=== PATIENT | female | born 1955 | race Caucasian/White ===

== ENCOUNTER → 2017-04-07 | Outpatient (CLI) | payer BC ==
--- NOTE | 2017-04-09 10:18 | MM ---
Reason for exam: screening (asymptomatic). Last mammogram was performed 1 year ago. History: Patient is postmenopausal. Family history of breast cancer in cousin at age 45 and breast cancer in mother at age 83. Benign cyst aspiration of the right breast, June 29, 2002. Excisional biopsy of the right breast. Physical Findings: A clinical breast exam by your physician is recommended on an annual basis and results should be correlated with mammographic findings. MG 3D Screening Mammo W/Cad Bilateral CC and MLO view(s) were taken. Prior study comparison: April 01, 2016, bilateral MG screening mammo w CAD. February 14, 2015, bilateral MG screening mammo w CAD. The breast tissue is heterogeneously dense. This may lower the sensitivity of mammography. There is chronic nodularity in the right breast superiorly. No significant changes when compared with prior studies. ASSESSMENT: Negative, BI-RAD 1 RECOMMENDATION: Routine screening mammogram of both breasts in 1 year.
== END | disposition home or self-care (01) ==
LOC: RADMAMWWP 07:45
PROVIDERS: ATTEND Internal Medicine Geriatric Medicine
DX: Z12.31 Encounter for screening mammogram for malignant neoplasm of breast (principal)
CPT/HCPCS: 77063; G0202

== ENCOUNTER → 2017-06-30 | Outpatient (CLI) | payer BC ==
--- NOTE | 2017-06-30 08:49 | BD ---
EXAMINATION TYPE: MG DEXA axial skeleton. DATE OF EXAM: 06/30/2017 CLINICAL HISTORY: Height: 67 Weight: 157 FRAX RISK QUESTIONS: Alcohol (3 or more units per day): no Family History (Parent hip fracture): no Glucocorticoids (More than 3mos): no (Ex: prednisone, prednisolone, methylprednisolone, dexamethasone, and hydrocortisone). History of Fracture in Adulthood: no Secondary Osteoporosis: 1. Type 1 Diabetes: no 2. Hyperthyroidism: no 3. Menopause before 45: hysterectomy age 49 4. Malnutrition: no 5. Chronic liver disease: no Rheumatoid Arthritis: no Current Tobacco Use: no RISK FACTORS HISTORY OF: Family History of Osteoporosis: unsure Active: yes Diet low in dairy products/other sources of calcium: no Postmenopausal woman: yes Take estrogen and/or progesterone medications: no Lost more than 2 inches in height since high school: no Frequent falls: no Poor Health: no Hyperparathyroidism: no Adrenal Insufficiency: no MEDICATIONS: Prednisone or other steroids: no Thyroid Medications:no Osteoporosis Medications: no Additional Medications: calcium & Vitamin D EXAM MEASUREMENTS: Bone mineral densitometry was performed using the [employer]era System. Bone mineral density as measured about the Lumbar spine is: ----- L1-L4(G/cm2): 1.297 T Score Values are as follows: ----- L2: 1.3 ----- L3: 1.7 ----- L4: 1.4 ----- L1-L4: 1.0 Bone mineral density has: Decreased -1.9% since study of: 01/06/2013 Bone mineral density about the R hip (g/cm2): 0.802 Bone mineral density about the L hip (g/cm2): 0.788 T Score values are as follows: -----R Neck: -1.7 -----L Neck: -1.8 -----R Total: -1.3 -----L Total: -1.5 Bone mineral density has: Decreased -5.0% since study of: 01/06/2013 IMPRESSION: Osteopenia (T Score between -2.5 and -1 as noted by T score values There is slightly increased risk of fracture and the patient may be considered for treatment. Re-Screen 2-5 years. NOTE: T-SCORE=SD OF THE YOUNG ADULT MEAN.
== END | disposition home or self-care (01) ==
LOC: RADBDWWP 08:09
PROVIDERS: ATTEND Internal Medicine Geriatric Medicine
DX: M85.88 Other specified disorders of bone density and structure, other site (principal)
CPT/HCPCS: 77080

== ENCOUNTER → 2018-04-08 | Outpatient (CLI) | payer BC ==
--- NOTE | 2018-04-09 10:19 | MM ---
Reason for exam: screening (asymptomatic). Last mammogram was performed 1 year ago. History: Patient is postmenopausal. Family history of breast cancer in cousin at age 45 and breast cancer in mother at age 83. Benign cyst aspiration of the right breast, June 29, 2002. Excisional biopsy of the right breast. Physical Findings: A clinical breast exam by your physician is recommended on an annual basis and results should be correlated with mammographic findings. MG 3D Screening Mammo W/Cad Bilateral CC and MLO view(s) were taken. Prior study comparison: April 07, 2017, bilateral MG 3d screening mammo w/cad. April 01, 2016, bilateral MG screening mammo w CAD. The breast tissue is heterogeneously dense. This may lower the sensitivity of mammography. There are benign appearing round calcifications in the right breast. Asymmetric breast tissue in the right upper asspect, stable. There is no discrete abnormality. ASSESSMENT: Benign, BI-RAD 2 RECOMMENDATION: Routine screening mammogram of both breasts in 1 year.
== END | disposition home or self-care (01) ==
LOC: RADMAMWWP 07:28
PROVIDERS: ATTEND Internal Medicine Geriatric Medicine
DX: Z12.31 Encounter for screening mammogram for malignant neoplasm of breast (principal)
CPT/HCPCS: 77063; 77067

== ENCOUNTER → 2019-04-16 | Outpatient (CLI) | payer BC ==
--- NOTE | 2019-04-20 09:57 | MM ---
Reason for exam: screening (asymptomatic). Last mammogram was performed 1 year ago. History: Patient is postmenopausal. Family history of breast cancer in cousin at age 45 and breast cancer in mother at age 83. Benign cyst aspiration of the right breast, June 29, 2002. Excisional biopsy of the right breast. Physical Findings: A clinical breast exam by your physician is recommended on an annual basis and results should be correlated with mammographic findings. MG 3D Screening Mammo W/Cad Bilateral CC and MLO view(s) were taken. Prior study comparison: April 08, 2018, bilateral MG 3d screening mammo w/cad. April 07, 2017, bilateral MG 3d screening mammo w/cad. The breast tissue is heterogeneously dense. This may lower the sensitivity of mammography. Anterior asymmetric density right MLO view does not persist on 3D images. No significant changes when compared with prior studies. ASSESSMENT: Negative, BI-RAD 1 RECOMMENDATION: Routine screening mammogram of both breasts in 1 year. Patient should continue monthly self breast exams. A negative report should not preclude additional follow up of suspicious palpable abnormalities.
== END | disposition home or self-care (01) ==
LOC: RADMAMWWP 16:34
PROVIDERS: ATTEND Internal Medicine Geriatric Medicine
DX: Z12.31 Encounter for screening mammogram for malignant neoplasm of breast (principal)
CPT/HCPCS: 77063; 77067

== ENCOUNTER → 2019-07-01 | Outpatient (CLI) | payer BC ==
--- NOTE | 2019-07-01 13:13 | BD ---
EXAMINATION TYPE: Axial Bone Density DATE OF EXAM: 07/01/2019 COMPARISON: 06.30.2017 CLINICAL HISTORY: 63 YR OLD FEMALE....ICD-10 CODE M81.0 OSTEOPOROSIS Height: 67 Weight: 155 FRAX RISK QUESTIONS: NOTHING TO NOTE HERE RISK FACTORS HISTORY OF: Active: YES Postmenopausal woman: YES, AT 49 YRS, COMPLETE HYST Hyperparathyroidism: NO Adrenal Insufficiency: NO MEDICATIONS: Additional Medications: CALCIUM AND VIT D Additional History: NOTHING ADDITIONAL TO NOTE HERE EXAM MEASUREMENTS: Bone mineral densitometry was performed using the [employer] System. Bone mineral density as measured about the Lumbar spine is: ----- L1-L4(G/cm2): 1.345 T Score Values are as follows: ----- L1: -0.5 ----- L2: 1.5 ----- L3: 2.0 ----- L4: 2.0 ----- L1-L4: 1.4 Bone mineral density has: Increased 3.4% since study of: 06.30.2017 Bone mineral density about the R hip (g/cm2): 0.824 Bone mineral density about the L hip (g/cm2): 0.807 T Score values are as follows: -----R Neck: -1.8 -----L Neck: -1.6 -----R Total: -1.5 -----L Total: -1.6 Bone mineral density has: Decreased -1.7% since study of: 06.30.2017 FRAX%s: THERE IS A 9.7% CHANCE FOR A MAJOR OSTEOPOROTIC FX AND A 1.3% FOR HIP.....PROBABILITY FOR FX IN 10 YRS TIME IMPRESSION: Osteopenia (T Score between -2.5 and -1). There is slightly increased risk of fracture and the patient may be considered for treatment. Re-Screen 2-5 years. NOTE: T-SCORE=SD OF THE YOUNG ADULT MEAN.
== END | disposition home or self-care (01) ==
LOC: RADBDWWP 09:59
PROVIDERS: ATTEND Internal Medicine Geriatric Medicine
DX: M85.80 Other specified disorders of bone density and structure, unspecified site (principal)
CPT/HCPCS: 77080

== ENCOUNTER → 2020-10-20 | Outpatient (CLI) | payer MEDICARE, OTHER ==
--- NOTE | 2020-10-23 11:11 | MM ---
Reason for exam: screening (asymptomatic). Last mammogram was performed 1 year and 6 months ago. History: Patient is postmenopausal. Family history of breast cancer in cousin at age 45 and breast cancer in mother at age 83. Benign cyst aspiration of the right breast, June 29, 2002. Excisional biopsy of the right breast. Physical Findings: A clinical breast exam by your physician is recommended on an annual basis and results should be correlated with mammographic findings. MG 3D Screening Mammo W/Cad Bilateral CC and MLO view(s) were taken. Prior study comparison: April 16, 2019, bilateral MG 3d screening mammo w/cad. April 08, 2018, bilateral MG 3d screening mammo w/cad. The breast tissue is extremely dense which could obscure a lesion on mammography. There are benign appearing round calcifications bilaterally. There is no discrete abnormality. ASSESSMENT: Benign, BI-RAD 2 RECOMMENDATION: Routine screening mammogram of both breasts in 1 year. Some consider bilateral ultrasound surveillance in patient with extremely dense fibroglandular tissue.
== END | disposition home or self-care (01) ==
LOC: RADMAMWWP 08:22
PROVIDERS: ATTEND Internal Medicine Geriatric Medicine
DX: Z12.31 Encounter for screening mammogram for malignant neoplasm of breast (principal); Z78.0 Asymptomatic menopausal state; Z80.3 Family history of malignant neoplasm of breast
CPT/HCPCS: 77063; 77067

== ENCOUNTER → 2021-11-08 | Outpatient (CLI) | payer MEDICARE ==
--- NOTE | 2021-11-08 16:48 | BD ---
EXAMINATION TYPE: Axial Bone Density DATE OF EXAM: 11/08/2021 COMPARISON: 07.01.2019 CLINICAL HISTORY: 66 years year old Female. ICD-10 CODE: M81.0 AGE RELATED OSTEOPOROSIS Height: 66.3 Weight: 156 FRAX RISK QUESTIONS: Family History (Parent hip fracture): NO FXs RISK FACTORS HISTORY OF: Family History of Osteoporosis: YES, PARENTS, NO HIP FX Active: YES HEIGHT LOSS SINCE HIGH SCHOOL Postmenopausal woman: TOTAL HYST AT 49 YRS OLD Hyperparathyroidism: NO Adrenal Insufficiency: NO MEDICATIONS: Additional Medications: REFLUX MEDS, VIT D AND CALCIUM Additional History: REFLUX, EXAM MEASUREMENTS: Bone mineral densitometry was performed using the [employer] System. Bone mineral density as measured about the Lumbar spine is: ----- L1-L4(G/cm2): 1.292 T Score Values are as follows: ----- L1: -0.8 ----- L2: 0.8 ----- L3: 1.7 ----- L4: 1.6 ----- L1-L4: 0.9 Bone mineral density has: Decreased -3.6% since study of: 07.01.2019 Bone mineral density about the R hip (g/cm2): 0.815 Bone mineral density about the L hip (g/cm2): 0.800 T Score values are as follows: -----R Neck: -1.7 -----L Neck: -2.0 -----R Total: -1.5 -----L Total: -1.6 Bone mineral density has: Decreased -1.0% since study of: 07.01.2019 FRAX%s: The graph provided illustrates a 4.7% chance for a major osteoporotic fx and a 1.2% chance fo r the hips probability for fx in 10 years time. IMPRESSION: Osteopenia (T Score between -2.5 and -1). There is slightly increased risk of fracture and the patient may be considered for treatment. Re-Screen 2-5 years. NOTE: T-SCORE=SD OF THE YOUNG ADULT MEAN.
--- NOTE | 2021-11-09 12:32 | MM ---
Reason for Exam: Screening (asymptomatic). Last mammogram was performed 1 year(s) and 1 month(s) ago. Patient History: Menarche at age 11. First Full-Term at age 28. Left ovary removed at age 49. Right ovary removed at age 49. Hysterectomy at age 49. Postmenopausal. Excisional Biopsy on the Right side. 06/29/2002, Benign Cyst Aspiration on the right side. Maternal cousin had breast cancer, age 45. Mother had breast cancer, age 83. Risk Values: Christina 5 year model risk: 3.9%. NCI Lifetime model risk: 13.0%. Prior Study Comparison: 04/08/2018 Bilateral Screening Mammogram, [facility]. 04/16/2019 Bilateral Screening Mammogram, [facility]. 10/20/2020 Bilateral Screening Mammogram, [facility]. Tissue Density: The breast tissue is heterogeneously dense. This may lower the sensitivity of mammography. Findings: Analyzed By CAD. Some stable focal asymmetries in the upper outer aspect right breast No suspicious groups of microcalcifications, spiculated or lobular masses, architectural distortion or other secondary signs of malignancy are mammographically apparent. Overall Assessment: Benign, BI-RAD 2 Management: Screening Mammogram of both breasts in 1 year. A negative mammogram report should not preclude additional follow up of suspicious palpable abnormalities. Patient should continue monthly self breast exam. A clinical breast exam by your physician is recommended on an annual basis and results should be correlated with mammographic findings. Electronically signed and approved by: Robert Harris D.O. Radiologis
== END | disposition home or self-care (01) ==
LOC: RADMAMWWP 10:19
PROVIDERS: ATTEND Internal Medicine Geriatric Medicine
DX: Z12.31 Encounter for screening mammogram for malignant neoplasm of breast (principal); M85.89 Other specified disorders of bone density and structure, multiple sites; Z78.0 Asymptomatic menopausal state; Z80.3 Family history of malignant neoplasm of breast
CPT/HCPCS: 77063; 77067; 77080

== ENCOUNTER → 2022-11-11 | Outpatient (CLI) | payer MEDICARE ==
--- NOTE | 2022-11-12 14:48 | MM ---
Reason for Exam: Screening (asymptomatic). Last screening mammogram was performed 12 month(s) ago. Patient History: Menarche at age 11. First Full-Term at age 28. Left ovary removed at age 49. Right ovary removed at age 49. Hysterectomy at age 49. Postmenopausal. Excisional Biopsy on the Right side. 06/29/2002, Benign Cyst Aspiration on the right side. Maternal cousin had breast cancer, age 45. Mother had breast cancer, age 83. Risk Values: Christina 5 year model risk: 4.0%. NCI Lifetime model risk: 12.5%. Prior Study Comparison: 04/16/2019 Bilateral Screening Mammogram, [facility]. 10/20/2020 Bilateral Screening Mammogram, [facility]. 11/08/2021 Bilateral MG 3D screening mammo w/cad, [facility]. Tissue Density: The breast tissue is heterogeneously dense. This may lower the sensitivity of mammography. Findings: Analyzed By CAD. There is no suspicious group of microcalcifications or new suspicious mass in either breast. Benign-appearing round calcifications within both breasts. Overall Assessment: Benign, BI-RAD 2 Management: Screening Mammogram of both breasts in 1 year. A clinical breast exam by your physician is recommended on an annual basis and results should be correlated with mammographic findings. Note on Christina scores and lifetime risk: 1. A Christina score greater than 3% is considered moderate risk. If this is the case, consider specialist referral to assess eligibility for a risk reducing agent. If overall lifetime risk for the development of breast cancer is 20% or higher, the patient may qualify for future screening with alternating mammogram and breast MRI. Electronically signed and approved by: Shivam Almodovar D.O.
== END | disposition home or self-care (01) ==
LOC: RADMAMWWP 10:16
PROVIDERS: ATTEND Internal Medicine Geriatric Medicine
DX: Z12.31 Encounter for screening mammogram for malignant neoplasm of breast (principal); Z78.0 Asymptomatic menopausal state; Z80.3 Family history of malignant neoplasm of breast
CPT/HCPCS: 77063; 77067

== ENCOUNTER → 2023-11-17 | Outpatient (CLI) | payer MEDICARE ==
--- NOTE | 2023-11-19 09:51 | MM ---
Reason for Exam: Screening (asymptomatic). Last screening mammogram was performed 12 month(s) ago. Patient History: Menarche at age 11. First Full-Term at age 28. Left ovary removed at age 49. Right ovary removed at age 49. Hysterectomy at age 49. Postmenopausal. Excisional Biopsy on the Right side. 06/29/2002, Benign Cyst Aspiration on the right side. Maternal cousin had breast cancer, age 45. Mother had breast cancer, age 83. Risk Values: Christina 5 year model risk: 4.0%. NCI Lifetime model risk: 11.9%. Prior Study Comparison: 10/20/2020 Bilateral Screening Mammogram, [facility]. 11/08/2021 Bilateral MG 3D screening mammo w/cad, [facility]. 11/11/2022 Bilateral MG 3D screening mammo w/cad, [facility]. Tissue Density: The breasts are heterogeneously dense, which may obscure small masses. Findings: Analyzed By CAD. There is no suspicious group of microcalcifications or new suspicious mass in either breast. Overall Assessment: Benign, BI-RAD 2 Management: Screening Mammogram of both breasts in 1 year. . Patient should continue monthly self-breast exams. A clinical breast exam by your physician is recommended on an annual basis. This exam should not preclude additional follow-up of suspicious palpable abnormalities. Note on Christina scores and lifetime risk: 1. A Christina score greater than 3% is considered moderate risk. If this is the case, consider specialist referral to assess eligibility for a risk reducing agent. 2. If overall lifetime risk for the development of breast cancer is 20% or higher, the patient may qualify for future screening with alternating mammogram and breast MRI. Electronically signed and approved by: Jossue Flores M.D. Radiologis
--- NOTE | 2023-11-19 17:46 | BD ---
EXAMINATION TYPE: Axial Bone Density DATE OF EXAM: 11/17/2023 CLINICAL HISTORY: 68 years old Female. ICD-10 CODE: M81.0 AGE RELATED OSTEOPOROSIS Height: 67 Weight: 160 FRAX RISK QUESTIONS: Family History (Parent hip fracture): no History of Fracture in Adulthood: no Secondary Osteoporosis: no 3. Menopause before 45: no RISK FACTORS HISTORY OF: Surgery to Spine/Hip(right/left)/Wrist (right/left): no MEDICATIONS: Thyroid Medications: no Osteoporosis Medications: no EXAM MEASUREMENTS: Bone mineral densitometry was performed using the [employer] System. Bone mineral density as measured about the Lumbar spine is: ----- L1-L4(G/cm2): 1.258 T Score Values are as follows: ----- L1: -0.9 ----- L2: 0.7 ----- L3: 1.4 ----- L4: 1.1 ----- L1-L4: 0.7 Z Score Values are as follows: ----- L1: 0.5 ----- L2: 2.1 ----- L3: 2.8 ----- L4: 2.5 ----- L1-L4: 2.1 Bone mineral density has: Decreased -2.6% since study of: 11/08/2021 Bone mineral density about the R hip (g/cm2): 0.829 Bone mineral density about the L hip (g/cm2): 0.827 T Score values are as follows: -----R Neck: -2.3 -----L Neck: -2.0 -----R Total: -1.4 -----L Total: -1.4 Z Score values are as follows: -----R Neck: -0.8 -----L Neck: -0.5 -----R Total: -0.2 -----L Total: -0.2 Bone mineral density has: Increased 2.6% since study of: 11/08/2021 FRAX%s: The graph provided illustrates a 13.7% chance for a major osteoporotic fx and a 3.1% chance f or the hips probability for fx in 10 years time. IMPRESSION: Osteopenia (T Score between -2.5 and -1). There is slightly increased risk of fracture and the patient may be considered for treatment. Re-Screen 2-5 years. NOTE: T-SCORE=SD OF THE YOUNG ADULT MEAN.
== END | disposition home or self-care (01) ==
LOC: RADMAMWWP 08:41
PROVIDERS: ATTEND Internal Medicine Geriatric Medicine
DX: Z12.31 Encounter for screening mammogram for malignant neoplasm of breast (principal); M81.0 Age-related osteoporosis without current pathological fracture; M85.89 Other specified disorders of bone density and structure, multiple sites; Z80.3 Family history of malignant neoplasm of breast; Z78.0 Asymptomatic menopausal state
CPT/HCPCS: 77063; 77067; 77080

== ENCOUNTER → 2024-11-29 | Outpatient (CLI) | payer MEDICARE ==
--- NOTE | 2024-11-29 18:34 | MM ---
Reason for Exam: Screening (asymptomatic). Last screening mammogram was performed 12 month(s) ago. Patient History: Menarche at age 11. First Full-Term at age 28. Left ovary removed at age 49. Right ovary removed at age 49. Hysterectomy at age 49. Postmenopausal. Excisional Biopsy on the Right side. 06/29/2002, Benign Cyst Aspiration on the right side. Maternal cousin had breast cancer, age 45. Mother had breast cancer, age 83. Risk Values: Christina 5 year model risk: 4.0%. NCI Lifetime model risk: 11.4%. Prior Study Comparison: 11/08/2021 Bilateral MG 3D screening mammo w/cad, [facility]. 11/11/2022 Bilateral MG 3D screening mammo w/cad, [facility]. 11/17/2023 Bilateral MG 3D screening mammo w/cad, [facility]. Tissue Density: The breasts are heterogeneously dense, which may obscure small masses. Findings: Analyzed By CAD. There is no suspicious group of microcalcifications or new suspicious mass in either breast. Overall Assessment: Negative, BI-RAD 1 Management: Screening Mammogram of both breasts in 1 year. See note below in regards to the patient's increased 5 year Christina score. Patient should continue monthly self-breast exams. A clinical breast exam by your physician is recommended on an annual basis. This exam should not preclude additional follow-up of suspicious palpable abnormalities. Note on Christina scores and lifetime risk: 1. A Christina score greater than 3% is considered moderate risk. If this is the case, consider specialist referral to assess eligibility for a risk reducing agent. 2. If overall lifetime risk for the development of breast cancer is 20% or higher, the patient may qualify for future screening with alternating mammogram and breast MRI. [facility], , 11/29/2024 5:32 PM. Electronically signed and approved by: Avery Martin M.D. Radiologist
== END | disposition home or self-care (01) ==
LOC: RADMAMWWP 14:42
PROVIDERS: ATTEND Internal Medicine Geriatric Medicine
DX: Z12.31 Encounter for screening mammogram for malignant neoplasm of breast (principal); R92.333 Mammographic heterogeneous density, bilateral breasts; Z78.0 Asymptomatic menopausal state; Z80.3 Family history of malignant neoplasm of breast
CPT/HCPCS: 77063; 77067